=== PATIENT | female | born 1980 | race Caucasian/White ===

== ENCOUNTER 2019-03-19 13:02 | Emergency (ER) | payer MEDICAID, MEDICARE ==
[~2019-03-19] VITALS: Ht 154.9 cm; Wt 59.9 kg
[2019-03-19 13:09] VITALS: BP 131/93
--- NOTE | 2019-03-19 13:19 | NUR ---
Patient ambulated to bed 7 after providing a urine specimen. RN evaluating patient at bedside.
--- NOTE | 2019-03-19 13:25 | NUR ---
C/O LOWER ABD PAIN, LOWER BACK TENDERNESS 6/10 AND ACHING X2 WEEKS. PT REPORTS BEING DX WITH KIDNEY INFECTION AT PCP OFFICE A FEW DAYS AGO BUT SHE WAS NOT ABLE TO FILL HER PRESCRIPTIONS. PT REPORTS URINARY FREQUENCY, BUT DENIES DYSURIA. DENIES N/V/D/FEVER. LBM 03/19/19. BED IN LOW POSITION, SIDE RAIL UP X1.
--- NOTE | 2019-03-19 13:32 | NUR ---
Dr. Gant evaluating patient at bedside.
[2019-03-19 14:02] VITALS: BP 131/93
--- NOTE | 2019-03-19 14:02 | NUR ---
Patient discharged with v/s stable. Written and verbal after care instructions given and explained. Patient alert, oriented and verbalized understanding of instructions. Ambulatory with steady gait. All questions addressed prior to discharge. ID band removed. Patient advised to follow up with PMD. Rx of CEPHALEXIN & PEPCID given. Patient educated on indication of medication including possible reaction and side effects. Opportunity to ask questions provided and answered.
== END 2019-03-19 14:05 | disposition home or self-care (01) ==
LOC: MED 13:05
DX: N39.0 Urinary tract infection, site not specified (principal); B96.89 Other specified bacterial agents as the cause of diseases classified elsewhere
CPT/HCPCS: 81002; 81025; 99283

== ENCOUNTER 2020-05-13 13:11 | Emergency (ER) | payer MEDICAID, OTHER ==
[~2020-05-13] VITALS: Ht 157.5 cm; Wt 61.2 kg
[2020-05-13 13:21] VITALS: BP 131/82
--- NOTE | 2020-05-13 14:51 | NUR ---
AMB TO [facility]
--- NOTE | 2020-05-13 15:00 | NUR ---
39/F C/O LEFT ANKLE AND KNEE PAIN S/P TRIP AND FALL ON A CRUB. AMBULATORY POST FALL. NO HEAD INJURY OR LOC. VSS. NAD HX- DENIES
[2020-05-13] MEDS ORDERED: IBUPROFEN 600 MG TAB PO ONE (15:05)
--- NOTE | 2020-05-13 15:29 | NUR ---
APPLIED VALORIE WRAP TO LEFT ANKLE WITHOUT ANY ISSUES
[2020-05-13 16:50] VITALS: BP 118/76
== END 2020-05-13 15:29 | disposition home or self-care (01) ==
LOC: MED 13:11
DX: S93.402A Sprain of unspecified ligament of left ankle, initial encounter (principal); W22.8XXA Striking against or struck by other objects, initial encounter; Y93.01 Activity, walking, marching and hiking; Y92.480 Sidewalk as the place of occurrence of the external cause; Y99.8 Other external cause status
CPT/HCPCS: 73562; 73630; 99284

== ENCOUNTER 2021-06-01 16:41 | Emergency (ER) | payer MEDICAID, OTHER ==
[~2021-06-01] VITALS: Ht 165.1 cm; Wt 61.2 kg
[2021-06-01 17:12] VITALS: BP 119/80
--- NOTE | 2021-06-01 17:16 | NUR ---
TENT 4.
[2021-06-01] MEDS ORDERED: CEPH500C16 PO (18:12)
[2021-06-01] MEDS ORDERED: PYR100 PO (18:12)
[2021-06-01] MEDS ORDERED: IBUP-2213 PO (18:12)
[2021-06-01 18:30] VITALS: BP 111/76
--- NOTE | 2021-06-01 18:30 | NUR ---
Patient discharged with v/s stable. Written and verbal after care instructions given and explained. Patient alert, oriented and verbalized understanding of instructions. Ambulatory with steady gait. All questions addressed prior to discharge. ID band removed. Patient advised to follow up with PMD. Rx of KEFLEX,PYRIDIUM given. Patient educated on indication of medication including possible reaction and side effects. Opportunity to ask questions provided and answered.NO NUSRING CARE GIVEN
== END 2021-06-01 18:30 | disposition home or self-care (01) ==
LOC: MED 16:41
DX: R30.0 Dysuria (principal); J02.9 Acute pharyngitis, unspecified; Z79.1 Long term (current) use of non-steroidal anti-inflammatories (NSAID); Z79.899 Other long term (current) drug therapy; Z79.2 Long term (current) use of antibiotics
CPT/HCPCS: 81025; 87086; 99283

== ENCOUNTER 2022-08-22 03:14 | Emergency (ER) | payer MEDICAID, OTHER ==
[~2022-08-22] VITALS: Ht 160 cm; Wt 63.5 kg
[~2022-08-22 03:14] MED LIST: CEPH500C16 PO; IBUP-2213 PO; PYR100 PO
[2022-08-22 03:25] VITALS: BP_SYST 1
--- NOTE | 2022-08-22 03:28 | NUR ---
TO LOBBY A/W BED AMBULATORY
[2022-08-22 04:05] VITALS: BP 134/78
--- NOTE | 2022-08-22 04:08 | NUR ---
PT TAKEN TO RADIOLOGY
--- NOTE | 2022-08-22 04:12 | NUR ---
PT RETURN FROM XRAY
[2022-08-22 05:06] LABS: BASOPHILS # (AUTO) 0.1 K/uL (0.00-0.22); BASOPHILS % (AUTO) 0.7 % (0.0-2.0); EOSINOPHILS # (AUTO) 0.1 K/uL (0-0.4); EOSINOPHILS % (AUTO) 1.3 % (0.0-4.0); HEMATOCRIT 40.6 % (36-48); HEMOGLOBIN 13.7 g/dL (12.0-16.0); LYMPHOCYTES # (AUTO) 2.2 K/uL (2.5-16.5); LYMPHOCYTES % (AUTO) 21.2 % (20.5-51.1); MEAN CORPUSCULAR HEMOGLOBIN 30 pg (27-31); MEAN CORPUSCULAR HGB CONC 34 g/dL (33-37); MEAN CORPUSCULAR VOLUME 88.3 fL (80-94); MONOCYTES # (AUTO) 0.5 K/uL (0.8-1.0); NEUTROPHILS # (AUTO) 7.3 K/uL (1.8-7.7); NEUTROPHILS % (AUTO) 71.8 % (42.2-75.2); PLATELET COUNT (AUTO) 317 K/uL (140-450); RED CELL DISTRIBUTION WIDTH 12.9 % (11.6-13.7); WHITE BLOOD COUNT (AUTO) 10.2 K/uL (4.8-10.8)
[2022-08-22 05:17] LABS: APPEARANCE,URINE CLEAR (CLEAR); BILIRUBIN,URINE NEGATIVE (NEGATIVE); BLOOD, URINE 2+ (NEGATIVE); COLOR,URINE YELLOW (YELLOW); LEUKOCYTE ESTERASE ,URINE NEGATIVE (NEGATIVE); NITRITE, URINE NEGATIVE (NEGATIVE); PH,URINE 6.5 (5.0-9.0); UGLUCOSE NEGATIVE (NEGATIVE)
[2022-08-22 05:20] LABS: RBC,URINE 0-5 /HPF (0-5); WBC,URINE 0-5 /HPF (0-5)
[2022-08-22 05:38] LABS: ALBUMIN 3.7 g/dL (3.4-5.0); ANION GAP 10.7 (8-16); ASPARTATE AMINOTRANSFERASE 16 U/L (15-37); CARBON DIOXIDE 25.8 mmol/L (21-32); CHLORIDE 105 mmol/L (98-107); CREATININE 0.5 mg/dL (0.6-1.3); GFR ARICAN-AMERICAN 176 mL/min (>90); GLUCOSE 115 mg/dL (74-106); POTASSIUM 3.5 mmol/L (3.5-5.1); SODIUM SERUM 138 mmol/L (136-145); THYROID STIMULATING HORMONE 2.24 uIU/mL (0.34-3.74); TOTAL BILIRUBIN 0.3 mg/dL (0.0-1.0); UREA NITROGEN, BLOOD 13 mg/dL (7-18)
--- NOTE | 2022-08-22 06:22 | NUR ---
Patient discharged with v/s stable. Written and verbal after care instructions given and explained. Patient verbalized understanding. Ambulatory with steady gait. All questions addressed prior to discharge. Advised to follow up with PMD.
== END 2022-08-22 06:22 | disposition home or self-care (01) ==
LOC: MED 03:14
DX: I10 Essential (primary) hypertension (principal); Z79.899 Other long term (current) drug therapy
CPT/HCPCS: 36415; 71045; 80053; 81001; 81025; 84443; 84484; 85025; 87086; 99285

== ENCOUNTER 2024-01-24 02:35 | Emergency (ER) | payer OTHER ==
[~2024-01-24] VITALS: Ht 154.9 cm; Wt 59.0 kg
[2024-01-24 02:43] VITALS: BP 147/85; PULSE 97; RESP 16; TEMP 97.7; O2SAT 100
[2024-01-24 03:28] VITALS: O2SAT 99
[2024-01-24 03:29] LABS: APPEARANCE,URINE CLEAR (CLEAR); BILIRUBIN,URINE NEGATIVE (NEGATIVE); BLOOD, URINE TRACE-I (NEGATIVE); COLOR,URINE YELLOW (YELLOW); LEUKOCYTE ESTERASE ,URINE 1+ (NEGATIVE); NITRITE, URINE NEGATIVE (NEGATIVE); PROTEIN,URINE NEGATIVE (NEGATIVE); UGLUCOSE NEGATIVE (NEGATIVE); UROBILINOGEN,URINE 0.2 EU/dL (0.2 - 1)
[2024-01-24 03:40] LABS: BASOPHILS # (AUTO) 0.1 K/uL (0.00-0.22); BASOPHILS % (AUTO) 0.7 % (0.0-2.0); EOSINOPHILS # (AUTO) 0.2 K/uL (0-0.4); EOSINOPHILS % (AUTO) 2.4 % (0.0-4.0); HEMATOCRIT 39.6 % (36-48); HEMOGLOBIN 13.8 g/dL (12.0-16.0); LYMPHOCYTES # (AUTO) 2.3 K/uL (2.5-16.5); LYMPHOCYTES % (AUTO) 29.1 % (20.5-51.1); MEAN CORPUSCULAR HEMOGLOBIN 31 pg (27-31); MEAN CORPUSCULAR HGB CONC 35 g/dL (33-37); MEAN CORPUSCULAR VOLUME 87.8 fL (80-94); MONOCYTES # (AUTO) 0.5 K/uL (0.8-1.0); NEUTROPHILS # (AUTO) 4.8 K/uL (1.8-7.7); NEUTROPHILS % (AUTO) 61.8 % (42.2-75.2); PLATELET COUNT (AUTO) 278 K/uL (140-450); RED BLOOD CELL COUNT(AUTO) 4.51 MIL/uL (4.20-5.40); RED CELL DISTRIBUTION WIDTH 13.5 % (11.6-13.7); WHITE BLOOD COUNT (AUTO) 7.8 K/uL (4.8-10.8)
[2024-01-24 03:43] LABS: BACTERIA,URINE 10-30 (MOD) /HPF (None Seen); MUCUS,URINE 1+ /LPF (None Seen); RBC,URINE 0-5 /HPF (0-5)
[2024-01-24 03:55] LABS: CALCIUM 8.8 mg/dL (8.5-10.1); CARBON DIOXIDE 25.9 mmol/L (21-32); CHLORIDE 103 mmol/L (98-107); CREATININE 0.7 mg/dL (0.6-1.3); GFR ARICAN-AMERICAN 118 mL/min (>90); GFR NON ARICAN-AMERICAN 98 mL/min (>90); GLUCOSE 136 mg/dL (74-106); POTASSIUM 3.9 mmol/L (3.5-5.1); SODIUM SERUM 139 mmol/L (136-145); UREA NITROGEN, BLOOD 13 mg/dL (7-18)
[2024-01-24 04:11] LABS: ALANINE AMINOTRANSFERASE 179 U/L (12-78); ALBUMIN 3.9 g/dL (3.4-5.0); ALKALINE PHOSPHATASE 101 U/L (50-136); ASPARTATE AMINOTRANSFERASE 49 U/L (15-37); THYROID STIMULATING HORMONE 2.11 uIU/mL (0.34-3.74); TOTAL BILIRUBIN 0.4 mg/dL (0.0-1.0); TOTAL PROTEIN, SERUM 7.2 g/dL (6.4-8.2)
[2024-01-24] MEDS ORDERED: CEPH-588 PO (04:33)
[2024-01-24 04:48] VITALS: BP 130/81; PULSE 89; RESP 16; TEMP 97.9; O2SAT 98
== END 2024-01-24 04:48 | disposition home or self-care (01) ==
LOC: MED 02:35
DX: N39.0 Urinary tract infection, site not specified (principal); R06.02 Shortness of breath; Z79.1 Long term (current) use of non-steroidal anti-inflammatories (NSAID); Z79.2 Long term (current) use of antibiotics; Z79.899 Other long term (current) drug therapy
CPT/HCPCS: 36415; 71045; 80053; 81001; 84443; 84484; 85025; 87086; 93005; 99285